=== PATIENT | female | born 1965 | race Caucasian/White ===

== ENCOUNTER → 2018-07-27 | Outpatient (CLI) | payer OTHER ==
[~2018-07-27] MED LIST: METO25ER PO
== END | disposition home or self-care (01) ==
LOC: LAB SHORT 14:32 → PLD 14:32
DX: R22.2 Localized swelling, mass and lump, trunk (principal)
CPT/HCPCS: 88305

== ENCOUNTER 2019-03-27 08:11 | Day surgery (SDC) | payer OTHER ==
[~2019-03-27] VITALS: Ht 149.9 cm; Wt 140.7 kg
[~2019-03-27 08:11] MED LIST changes: +ASPI81CH PO; +CETI5 PO; +Camila0.35 MG PO; +ERYT1OIN BOTHEYES; +LISI20 PO; +LOVA40 PO; +METF500 PO; +PIOG30 PO; +SITA50T2 PO; +THERA1 EACH PO; +TUMS500 MG PO; +TURMERIC PO; +Vitamin B Comple1 EA PO; +[UNRECOGNIZED DRUG - OTHER] PO
--- NOTE | 2019-03-27 08:48 | NUR ---
PT TO SDS. IN VIA W/C. ABLE TO WALK SHORT DISTANCES. LUNG SOUNDS CLEAR. AGREES WITH PLANNED SURGERY.
--- NOTE | 2019-03-27 09:08 | NUR ---
LUNG SOUNDS CLEAR. STATES NO MENSES, GREATER THAN A YEAR.
--- NOTE | 2019-03-27 09:20 | NUR ---
SECOND IV STARTED. FIRST IV POSITIONAL AND RUN POORLY WHEN ARM BENT.
--- NOTE | 2019-03-27 10:02 | NUR ---
03/27/19 1002 Morgan Banks RN ADMINISTERED IV FENTANYL AND MONITORED VS.
--- NOTE | 2019-03-27 11:17 | NUR ---
PT GOT UP AND DRESSED BY SELF. WHEEL CHAIR BROUGHT DOWN FROM ADMITTING PT PUSHED OUT TO WAITING AREA. DR COUGHLIN GOT PULLED INTO ANOTHER OR FOR AN EMERGENCY. WAITING FOR DISCHARGE INSTRUCTIONS AND PAIN MED SCRIPT. PT VERBALIZES UNDERSTANDING OF DELAY AND IS COOPERATIVE.
== END 2019-03-27 22:48 | disposition home or self-care (01) ==
LOC: ORSCMMR 08:11 → ORSCSDS 10:00 → ORSCMMR 10:30
PROVIDERS: Surgery
PROC: 0JB70ZZ Excision of Back Subcutaneous Tissue and Fascia, Open Approach (ICD-10-PCS; principal; 2019-03-27 10:00)
DX: D17.1 Benign lipomatous neoplasm of skin and subcutaneous tissue of trunk (principal); E11.9 Type 2 diabetes mellitus without complications; I10 Essential (primary) hypertension; E78.00 Pure hypercholesterolemia, unspecified; E66.01 Morbid (severe) obesity due to excess calories; Z68.44 Body mass index [BMI] 60.0-69.9, adult; Z79.82 Long term (current) use of aspirin; Z79.84 Long term (current) use of oral hypoglycemic drugs; Z79.899 Other long term (current) drug therapy
CPT/HCPCS: 82947; 88304; J0690; J2250; J3010; J7120